=== PATIENT | male | born 2000 | race Hispanic/Latino ===

== ENCOUNTER 2019-12-04 11:13 | Emergency (ER) | payer BC, MEDICAID | END 2019-12-04 11:43 | disposition home or self-care (01) | LOC: EDH 11:13 | DX: L03.031 Cellulitis of right toe (principal); L03.032 Cellulitis of left toe; Z88.0 Allergy status to penicillin | CPT/HCPCS: 99281 ==

== ENCOUNTER 2020-01-18 18:18 | Emergency (ER) | payer BC, MEDICAID ==
[2020-01-18] MEDS ORDERED: SULFAMETHOX-TMP DS 800/160 TAB ONE (19:12)
== END 2020-01-18 20:07 | disposition home or self-care (01) ==
LOC: EDH 18:18
DX: L03.031 Cellulitis of right toe (principal); Z88.0 Allergy status to penicillin; Z87.891 Personal history of nicotine dependence
CPT/HCPCS: 73660